=== PATIENT | female | born 2000 | race Asian ===

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

== ENCOUNTER 2019-01-14 09:59 | Emergency (ER) | payer MEDICAID ==
[~2019-01-14] VITALS: Ht 167.6 cm; Wt 127.0 kg
[2019-01-14 10:05] VITALS: BP_SYST 151
--- NOTE | 2019-01-14 10:16 | NUR ---
Patient to ER bed 6 to gown for evaluation. Side rails up.
--- NOTE | 2019-01-14 10:19 | NUR ---
ER Dr. STRONG at bedside examining patient.
--- NOTE | 2019-01-14 10:20 | NUR ---
PATIENT CAME IN COMPLAINING OF SORE THROAT FOR PAST 2 DAYS. PATIENT STATE IT HURTS TO SWALLOW. PATIENT COMPLAINING OF PAIN 6/10. PATIENT STATES SHE TOOK IBUPROFEN LAST NIGHT BUT DIDNT HELP. PATIENT STATES NECK TENDER WELL. PATIENT STATES SHE HAS BEEN TRAVELING RECENTLY. PATIENT DENIES SOB AND COUGH. PATIENT ALERT AND ORIENTED X4.
[2019-01-14] MEDS ORDERED: KETOROLAC TROMETHAMINE 60 MG/2 ML VIAL IM ONE (10:45)
[2019-01-14 10:51] VITALS: BP_SYST 148
--- NOTE | 2019-01-14 10:51 | NUR ---
Ken presley in [facility] - 01/14/19 at 1054 by ROMEO KERRIE STRONG at bedside examining patient.
--- NOTE | 2019-01-14 10:51 | NUR ---
Patient given written and verbal discharge instructions and verbalizes understanding. ER MD discussed with patient the results and treatment provided. Patient in stable condition. ID arm band removed. Rx of TYENOL AND CHLORASEPTIC THROAT SPRAY given. Patient educated on pain management and to follow up with PMD. Pain Scale 4/10 TOLERABLE. PATIENT REFUSED PAIN MEDS. PATIENT SENT HOME WITH RX. Opportunity for questions provided and answered. Medication side effect fact sheet provided.
== END 2019-01-14 10:51 | disposition home or self-care (01) ==
LOC: SED 09:59
DX: J02.9 Acute pharyngitis, unspecified (principal); I10 Essential (primary) hypertension; E66.9 Obesity, unspecified; Z68.52 Body mass index [BMI] pediatric, 5th percentile to less than 85th percentile for age
CPT/HCPCS: 36415; 86403; 87081; 99283; J1885

== ENCOUNTER 2019-01-15 20:49 | Emergency (ER) | payer MEDICAID ==
[~2019-01-15] VITALS: Ht 167.6 cm; Wt 127.0 kg
[2019-01-15 20:59] VITALS: BP_SYST 159
--- NOTE | 2019-01-15 21:04 | NUR ---
Patient triaged and placed in waiting room. VSS and patient appears in no acute distress at this time. Accompanied by friend, awaiting available bed, and MD notified of need for MSE.
--- NOTE | 2019-01-15 22:15 | NUR ---
Patient to ER CH1 to [facility] for evaluation. Side rails up. Report received from ALEX Gabriel.
--- NOTE | 2019-01-15 22:16 | NUR ---
Patient to ER bed ch1 to gown for evaluation. Side rails up. Report given to Selina JOHNSON.
--- NOTE | 2019-01-15 22:17 | NUR ---
Pt AAOx4 ambulated into ED c/o sore throat x 1 week. Pt was seen yesterday and was given RX of pain meds and throat spray with no relief. Pt now states "It feels like a ball is stuck in my throat and I'm breathing through a straw." Pt requests antibiotics. SaO2 100% on RA, pt speaking in full sentences. Denies n/v/d/cp. No other injuries/complaints per pt/noted. Will continue to monitor.
--- NOTE | 2019-01-15 22:19 | NUR ---
ER Dr. Frey at bedside examining patient.
[2019-01-15] MEDS ORDERED: CLINDAMYCIN HCL 150 MG CAPSULE PO ONE (22:30)
--- NOTE | 2019-01-15 22:40 | NUR ---
Patient given written and verbal discharge instructions and verbalizes understanding. ER MD Frey discussed with patient the results and treatment provided. Patient in stable condition. ID arm band removed. Rx of Clindamycin given. Patient educated on pain management and to follow up with PMD. Pain Scale 0. Opportunity for questions provided and answered. Medication side effect fact sheet provided.
[2019-01-15 22:41] VITALS: BP_SYST 140
== END 2019-01-15 22:41 | disposition home or self-care (01) ==
LOC: SED 20:49
DX: R07.0 Pain in throat (principal); R03.0 Elevated blood-pressure reading, without diagnosis of hypertension; Z88.0 Allergy status to penicillin; Z88.1 Allergy status to other antibiotic agents; Z91.041 Radiographic dye allergy status
CPT/HCPCS: 99283